=== PATIENT | male | born 1940 | race Two or more races ===

== ENCOUNTER 2018-03-25 12:35 | Emergency (ER) | payer MEDICARE ==
[~2018-03-25] VITALS: Ht 162.6 cm; Wt 75.0 kg
[2018-03-25 13:02] VITALS: BP 136/63
== END 2018-03-25 15:21 | disposition home or self-care (01) ==
LOC: ED 15:15
DX: R42 Dizziness and giddiness (principal); Z76.89 Persons encountering health services in other specified circumstances
CPT/HCPCS: 99283

== ENCOUNTER 2019-07-13 19:50 | Emergency (ER) | payer MEDICARE ==
[~2019-07-13] VITALS: Ht 175.3 cm; Wt 76.4 kg
[2019-07-13] MEDS ORDERED: SODIUM CHLORIDE FLUSH 10ML SYR IVF ONE (20:30)
[2019-07-13] MEDS ORDERED: SODIUM CHLORIDE 0.9% 1,000ML IVBOLUS ONE (20:30)
--- NOTE | 2019-07-13 20:40 | NUR ---
PT REPORTS HE CAME TO ED BECAUSE HE LIVES WITH HIS SISTER AND SHE WOULD LET HIM STAY THERE TONIGHT. PT RESTING ON GURNEY WITH EYES CLOSED.
[2019-07-13 21:02] LABS: BASOPHILS % (AUTO) 0 % (0-1); EOSINOPHILS % (AUTO) 0 % (1-7); LYMPHOCYTES # (AUTO) 0.87 x10^3/uL (1-3.4); LYMPHOCYTES % (AUTO) 6 % (22-44); MD NO; MEAN CORPUSCULAR HEMOGLOBIN 29.6 pg (27.5-34.5); MEAN CORPUSCULAR HGB CONC 33.4 g/dL (33.2-36.2); MEAN CORPUSCULAR VOLUME 88.6 fL (81-97); MEAN PLATELET VOLUME 9.3 fL (7.4-10.4); MONOCYTES % (AUTO) 4 % (2-9); NEUTROPHILS # (AUTO) 13.39 x10^3/uL (1.8-6.8); NEUTROPHILS % (AUTO) 90 % (42-75); PLATELET COUNT 226 x10^3/uL (130-400); RED BLOOD COUNT 5.13 x10^6/uL (4.38-5.82); RED CELL DISTRIBUTION WIDTH 13.2 % (9.4-14.8)
[2019-07-13 21:06] LABS: ALANINE AMINOTRANSFERASE 17 U/L (12-78); ALBUMIN 3.1 g/dL (3.4-5.0); ANION GAP 12 mmol/L (5-15); CALCIUM 8.5 mg/dL (8.5-10.1); CHLORIDE 105 mmol/L (98-107); CREATININE 0.88 mg/dL (0.7-1.3)
[2019-07-13 21:08] LABS: ACETONE, SERUM Moderate(40mg/dL) (Negative); ALKALINE PHOSPHATASE 160 U/L (45-117); BILIRUBIN,TOTAL 0.4 mg/dL (0.2-1.0); TOTAL PROTEIN 8.1 g/dL (6.4-8.2)
[2019-07-13 21:19] VITALS: BP 130/62
--- NOTE | 2019-07-13 21:29 | NUR ---
PT ABLE TO AMBUALTE WITH STEADY GAIT.
== END 2019-07-13 22:26 | disposition home or self-care (01) ==
LOC: ED 21:45
DX: E11.65 Type 2 diabetes mellitus with hyperglycemia (principal); R27.0 Ataxia, unspecified
CPT/HCPCS: 36415; 70450; 80053; 80307; 82010; 82140; 82803; 83930; 85025; 93005; 99285; J7030

== ENCOUNTER 2019-10-23 19:21 | Emergency (ER) | payer MEDICARE ==
[~2019-10-23] VITALS: Ht 157.5 cm; Wt 68.2 kg
--- NOTE | 2019-10-23 20:14 | NUR ---
UNIVERSAL GRINDER TOOL [id number]: THIS IS A 79 YO MALE COMING IN FOR BLISTERS ON LOWER EXTREMITIES, CHEST AND BACK X2 DAYS. SCARS NOTED FROM PREVIOUS BLISTERS LOCATED DIFFUSELY ACROSS BODY. PATIENT DENIES THIS HAPPENING BEFORE, FRIEND IN ROOM WHO BROUGHT PATIENT IN STATES IT HAPPENED 4 YEARS AGO. PATIENT IS A&OX3, DOES NOT KNOW WHAT YEAR IT IS BUT IS AWARE OF DATE. PATIENT DENIES ANY PAIN, STATES BLISTERS AND SKIN IS ITCHY. LARGE NON TENDER, NON FIRM LUMP NOTED TO POSTERIOR NECK, PATIENT DOES NOT KNOW HOW LONG IT HAS BEEN THERE. DENIES ANY NEW MEDICATIONS OR CREAMS. SPO2 AND BP MONITORING IN PLACE, VSS, UNIVERSAL GRINDER TOOL COMPUTER IN ROOM FOR FURTHER USE. CALL LIGHT IN REACH. FRIEND/CAREGIVER HERE IN ROOM.
[2019-10-23] MEDS ORDERED: hydrOXyzine 50MG TABLET ONE (20:26)
[2019-10-23] MEDS ORDERED: FAMOTIDINE 20 MG TABLET ONE (20:26)
[2019-10-23] MEDS ORDERED: FAMOTIDINE 20 MG TABLET PO ONE (20:30)
[2019-10-23 20:34] LABS: BASOPHILS # (AUTO) 0.04 x10^3/uL (0-0.1); BASOPHILS % (AUTO) 0 % (0-1); EOSINOPHILS # (AUTO) 0.52 x10^3/uL (0-0.4); EOSINOPHILS % (AUTO) 6 % (1-7); LYMPHOCYTES # (AUTO) 2.04 x10^3/uL (1-3.4); LYMPHOCYTES % (AUTO) 22 % (22-44); MD NO; MEAN CORPUSCULAR HEMOGLOBIN 29.1 pg (27.5-34.5); MEAN CORPUSCULAR HGB CONC 32.9 g/dL (33.2-36.2); MEAN CORPUSCULAR VOLUME 88.7 fL (81-97); MEAN PLATELET VOLUME 8.6 fL (7.4-10.4); MONOCYTES # (AUTO) 0.75 x10^3/uL (0.2-0.8); MONOCYTES % (AUTO) 8 % (2-9); NEUTROPHILS # (AUTO) 5.84 x10^3/uL (1.8-6.8); NEUTROPHILS % (AUTO) 64 % (42-75); PLATELET COUNT 233 x10^3/uL (130-400); RED BLOOD COUNT 4.77 x10^6/uL (4.38-5.82); RED CELL DISTRIBUTION WIDTH 14.3 % (9.4-14.8)
--- NOTE | 2019-10-23 20:34 | NUR ---
Break RN: patient medicated. no other complaints made.
[2019-10-23 20:41] LABS: ALANINE AMINOTRANSFERASE 18 U/L (12-78); CALCIUM 8.8 mg/dL (8.5-10.1); CREATININE 0.83 mg/dL (0.7-1.3)
--- NOTE | 2019-10-23 20:41 | NUR ---
ERP at bedside talking to patient and friend.
[2019-10-23 20:43] LABS: ALBUMIN 3.3 g/dL (3.4-5.0); ALKALINE PHOSPHATASE 97 U/L (45-117); BILIRUBIN,TOTAL 0.3 mg/dL (0.2-1.0); TOTAL PROTEIN 7.7 g/dL (6.4-8.2)
[2019-10-23 20:49] LABS: ANION GAP 6 mmol/L (5-15); CHLORIDE 108 mmol/L (98-107)
--- NOTE | 2019-10-23 21:06 | NUR ---
REPORT GIVEN TO JUAN FRANCISCO LEOS. PLAN OF CARE DISCUSSED
[2019-10-23 21:45] LABS: HCT (SEDRATE) 42.3 % (39.2-51.8)
[2019-10-23 21:51] VITALS: BP 146/68
--- NOTE | 2019-10-23 21:51 | NUR ---
PT GIVEN SHEET TO COVER HIMSELF WITH REQUESTED.
== END 2019-10-23 23:06 | disposition home or self-care (01) ==
LOC: ED 19:51
DX: L12.0 Bullous pemphigoid (principal); E11.65 Type 2 diabetes mellitus with hyperglycemia; L50.9 Urticaria, unspecified
CPT/HCPCS: 36415; 80053; 85025; 85651; 86140; 99284; J7512; Q0177